=== PATIENT | female | born 1985 | race African-American/Black ===

== ENCOUNTER 2017-01-17 23:01 | Emergency (ER) | payer MEDICAID, OTHER ==
[~2017-01-17] VITALS: Ht 172.7 cm; Wt 93.5 kg
[~2017-01-17 23:01] MED LIST: ACET1TAB12 PO; IBUP200C5 PO; PENI500T2 PO
[2017-01-18 02:45] VITALS: BP 129/74
[2017-01-18] MEDS ORDERED: HYDROCODONE/ACETAMINOPHEN 5-325 MG TABLET PO ONE (02:45)
== END 2017-01-18 02:48 | disposition home or self-care (01) ==
LOC: EMS 23:06
DX: K08.89 Other specified disorders of teeth and supporting structures (principal); F17.210 Nicotine dependence, cigarettes, uncomplicated
CPT/HCPCS: 99283; 99406